=== PATIENT | male | born 1985 ===

== ENCOUNTER 2022-01-04 10:33 | Emergency (ER) | payer SELFPAY ==
[~2022-01-04] VITALS: Ht 162 cm; Wt 74.0 kg
--- NOTE | 2022-01-04 10:55 | ED Integumentary General ---
General Chief Complaint: Laceration Stated Complaint: LEFT INDEX FINGER LAC Source: patient, family Exam Limitations: language barrier History of Present Illness Date Seen by Provider: Jan 04, 2022 Time Seen by Provider: 10:41 Initial Comments Patient is a 36-year-old male who presents to the emergency department with a laceration/avulsion to the index finger of his left hand. Patient was cutting vegetables when the knife slipped and sliced the lateral portion of his left index finger at the distal phalanx. They attempted to clean it at home. The bleeding would not stop. Patient does not recall his last tetanus. No allergies to medications. Not a diabetic. Timing/Duration: just prior to arrival Severity: mild Location: hands (left index finger) Associated Symptoms: denies symptoms Allergies and Home Medications Allergies Coded Allergies: No Known Drug Allergies (Unverified , 01/04/22) Patient Home Medication List Home Medication List Reviewed: Yes Review of Systems Review of Systems Constitutional: see HPI Musculoskeletal: no symptoms reported Skin: other (laceration) All Other Systems Reviewed Negative Unless Noted: Yes Past Pdwhrrd-Pnordu-Qdquvr Hx Patient Social History Tobacco Use?: No Substance use?: No Alcohol Use?: No Pt feels they are or have been: No Immunizations Up To Date First/Initial COVID19 Vaccinat: 09/2020 Second COVID19 Vaccination Ru: 09/2020 COVID19 Vaccine 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 Physical Exam Vital Signs Vital Signs - First Documented 01/04/22 10:40 Temp 36.0 Pulse 72 Resp 18 B/P (MAP) 152/107 (122) Pulse Ox 98 O2 Delivery Room Air Capillary Refill : General Appearance: WD/WN, no apparent distress HEENT: PERRL/EOMI Neck: normal inspection Respiratory: no respiratory distress, no accessory muscle use Extremities: normal range of motion, normal inspection Neurologic/Psychiatric: alert, normal mood/affect, oriented x 3 Skin: normal color, warm/dry Skin Problem Location: upper extremities (left index finger at the lateral margin of the fingernail/distal phalanx a 0.5cm wide x 1cm long avulsion-type wound with minimal bleeding. part of the fingernail is avulsed as well. otherwise NVI) Progress/Results/Core Measures Results/Orders My Orders Orders - CARLOS EDUARDO REYES MD Dipht,Pertuss(Acell),Tet Adult (Boostrix (01/04/22 11:00) Medications Given in ED Current Medications Medications Dose Ordered Sig/Sunny Route Start Time Stop Time Status Last Admin Dose Admin Diphtheria/ Tetanus/Acell Pertussis 0.5 ml ONCE ONCE IM 01/04/22 11:00 01/04/22 11:01 DC 01/04/22 10:57 0.5 ML Vital Signs/I&O 01/04/22 10:40 Temp 36.0 Pulse 72 Resp 18 B/P (MAP) 152/107 (122) Pulse Ox 98 O2 Delivery Room Air Progress Progress Note : Time: 10:55 Progress Note Partial digital block done on the left index finger, lateral side of the finger. Wound cleansed thoroughly and small amount of surgicel placed followed by a dry gauze dressing. Departure Impression Primary Impression: avulsion injury of finger Disposition: HOME, SELF-CARE Condition: Stable Departure-Patient Inst. Decision time for Depature: 10:54 Referrals: [facility] [place],LOCAL PHYSICIAN (PCP) Primary Care Physician Patient Instructions: SKIN AVULSION Add. Discharge Instructions: Keep the wound dressing on for 24 hours. You can change the dressing tomorrow. Wash gently with soap and water. APply a little triple antibiotic ointment once a day and then a clean dry gauze dressing. Return to the ER for re-evaluation if the wound starts to look infected with redness, swelling, puss, fever or other emergent, concerns. Work/School Note: Work Release Form Date Seen in the Emergency Department: Jan 04, 2022 Return to Work: Jan 07, 2022 CARLOS EDUARDO REYES MD Jan 04, 2022 10:55
[2022-01-04] MEDS ORDERED: TETANUS,DIPTH,PERTUSS P/F (BOOSTRIX) 0.5 ML VIAL IM ONE (11:00)
[2022-01-04 11:36] VITALS: BP 122/98
== END 2022-01-04 11:36 | disposition home or self-care (01) ==
LOC: ER 10:36
DX: S61.301A Unspecified open wound of left index finger with damage to nail, initial encounter (principal); Z23 Encounter for immunization; W26.0XXA Contact with knife, initial encounter
CPT/HCPCS: 90715